=== PATIENT | male | born 1960 | race Caucasian/White ===

== ENCOUNTER → 2016-10-23 | Outpatient (CLI) | payer OTHER ==
--- NOTE | 2016-10-23 09:28 | US ---
Ultrasound Abdomen Limited History: Bilateral groin pain. Technique: Ultrasound imaging of bilateral groin regions was performed without and with Valsalva man euver in the supine and standing positions. Findings: A right-sided direct inguinal hernia medial to the epigastric vessels identified during Fauzia kyle maneuver in the supine position which spontaneously reduces and has a neck region of 4 mm. A left direct inguinal hernia medial to the epigastric vessels which also spontaneously reduces and h as a smaller neck of 3 mm. Bilateral inguinal hernias only demonstrate adipose tissue without evidenc e of bowel extending into the hernias. Impression: Small bilateral fat-containing inguinal hernias which spontaneously reduce.
== END ==
LOC: CIMAGING 08:29
PROVIDERS: ATTEND Nurse Practitioner Adult Health
DX: K40.20 Bilateral inguinal hernia, without obstruction or gangrene, not specified as recurrent (principal)
CPT/HCPCS: 76705-PO

== ENCOUNTER → 2018-09-15 | Outpatient (CLI) | payer OTHER | LOC: FIMAGING 15:55 | PROVIDERS: ATTEND Physician Assistant | DX: J18.1 Lobar pneumonia, unspecified organism (principal) ==